=== PATIENT | female | born 1960 | race Caucasian/White ===

== ENCOUNTER 2017-01-15 11:11 | Emergency (ER) | payer OTHER ==
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
--- NOTE | 2017-01-15 16:05 | ED ORDER SUMMARY ---
..... Patient: SEBASTIAN GARCIA OrderSheet [facility] VisitID: [id number] [address] [place] [address] 56y, F Registration Date/Time: 01/15/2017 ORDER SHEET Weight: 70.7 kg (stated) Allergies: Latex, Sulfa Antibiotics GENERAL ORDERS: CBC w Diff Urgent (11:01/15/2017 Chapis Gibbs) (Ack 11:32 DMOoerubaner) (11:37 KKnebelkys R.N.) CMP Urgent (11:01/15/2017 Chapis Gibbs) (Ack 11:32 DOMoerubaner) (11:37 KATIEnebel R.N.) TSH Urgent (11:01/15/2017 Chapis Gibbs) (Ack 11:32 DOMoerner) (11:37 KKnebel R.N.) Culture, Strep Screen Urgent (11:01/15/2017 Chapis Gibbs) (Ack 11:32 DOMoerner) (11:37 KKnebel R.N.) - (discharge planning) (14:20 01/15/2017 Chapis Gibbs) (14:57 KHoerner) UA-Culture if indicated Urgent (14:43 01/15/2017 Chapis Gibbs) (14:57 KHoerner) Urine Drug Screen Urgent (15:53 01/15/2017 Chapis Gibbs) (15:59 KHoerner) MEDICATION ORDERS: Ativan PO 0.5 mg (HIGH ALERT MEDICATION, NOW) (14:19 01/15/2017 Chapis Gibbs) (14:41 Tiana R.N.) IV FLUIDS: ORDER SHEET NOTES: [Electronically signed by Darlin Anthony R.N. (19:39 01/15/2017)] [Electronically signed by Jc Gardner Dr. (13:00 01/16/2017)] [Electronically locked/signed by Darlin Anthony R.N. (19:39 01/15/2017)]
--- NOTE | 2017-01-15 16:05 | ED CLINICAL REPORT ---
Clinical Report - Physicians/Mid Levels [facility] [address] [place] [address] 01/15/2017 11:12 Patient: SEBASTIAN GARCIA Time Seen: 1120. Arrived- By private vehicle. Historian- patient. HISTORY OF PRESENT ILLNESS Chief Complaint: SORE THROAT. This started patient does not recall and is still present. It was abrupt in onset and has been constant but is not gone now. Pain described as moderate. The patient has had a sore throat. No nasal discharge or congestion. (patient is also here for other concerns including a rash in her scalp, ear pain for the past several months, bilateral knee pain, lower back pain, left-sided jaw pain, body aches, and joint pain, as well as problem with her calcium level. Patient states that she was told she had a high calcium level. Patient is somewhat difficult to direct. patient also states that her recent living situation she was in was significant for possible drug dealing. Patient states that she no longer lives there and does not have a place to live.). Similar symptoms previously: None. Recent medical care: Not recently seen/assessed. REVIEW OF SYSTEMS No fever, abdominal pain or skin rash. She has had chest pain (in contrast was reported from nursing notes.) and joint pain. All systems otherwise negative, except as recorded above. PAST HISTORY See nurses notes. Medications: Aspirin Oral. Allergies: Latex. Sulfa Antibiotics. SOCIAL HISTORY Smoker- current status unknown. Occasional alcohol use. No drug use. No recent travel. Is a local resident. ADDITIONAL NOTES The nursing notes have been reviewed. PHYSICAL EXAM Vital Signs: 01/15/2017 11:17 BP: 183/98. HR: 56. RR: 16. O2 saturation: 100%. Temp: 98.1 F. Pain level now: 4/10. Blood pressure normal. Oxygen saturation normal. Appearance: Alert. No acute distress. Head: Normal external inspection. (white flaky rash to the occipital scalp. No erythema. No bleeding. No masses.). Eyes: Pupils equal, round and reactive to light. Conjunctivae and eyelids normal. ENT: Ears normal. Nose normal. Pharynx normal. Lips normal. Gums normal. No trismus present. Uvula midline. Neck: Trachea midline. No adenopathy. Thyroid normal. No lymphadenopathy or meningeal signs. CVS: Normal heart rate and rhythm. Heart sounds normal. Pulses normal. Respiratory: No respiratory distress. Breath sounds normal. Abdomen: Soft and nontender. No organomegaly. Skin: Normal skin color. No rash. Normal skin turgor. Extremities: Extremities exhibit normal ROM. Extremities nontender. Neuro: Oriented X 3. No motor deficit. No sensory deficit. Reflexes normal. (normal gait. no suicidal ideation. No homicidal ideation. No hallucinations or delusions.). LABS, X-RAYS, AND EKG Laboratory Tests: UA-Culture if indicated: (CELY: 01/15/2017 14:44) ( [facility] 01/15/2017 14:55) Final results Test Result Flag Units (Reference) URINE COLOR YELLOW URINE APPEARANCE CLEAR URINE GLUCOSE NEGATIVE (NEGATIVE) URINE BILIRUBIN NEGATIVE (NEGATIVE) URINE KETONE TRACE (NEGATIVE) URINE SPECIFIC GRAVITY 1.010 (1.010-1.030) URINE PH 6.5 (5.0-8.0) URINE PROTEIN NEGATIVE (NEGATIVE) URINE UROBILINOGEN 0.2 EU/dL (0.2-1.0) URINE NITRITE NEGATIVE (NEGATIVE) URINE BLOOD NEGATIVE (NEGATIVE) URINE LEUK ESTERASE NEGATIVE (NEGATIVE) URINE RBC NONE SEEN rbc/hpf (0-1) URINE WBC RARE wbc/hpf (0-1) URINE EPITHELIAL CELLS 0-1 EPI/hpf (0-5) URINE BACTERIA FEW (1+) (NONE SEEN) URINE COMMENT CULT NOT INDICATED URINE CULTURES ARE SET-UP BASED ON THE FOLLOWING CRITERIA:POSITIVE NITRITEPOSITIVE LEUKOCYTE ESTERASEGREATER THAN 10 WHITE BLOOD CELLSMODERATE (2+) OR GREATER BACTERIA CBC w Diff: (CELY: 01/15/2017 12:00) ( [facility] 01/15/2017 12:10) Final results Test Result Flag Units (Reference) WHITE BLOOD COUNT 8.8 K/uL (4.5-11.5) RED BLOOD COUNT 4.75 M/uL (4.00-5.20) HEMOGLOBIN 15.1 gm/dL (12.0-16.0) HEMATOCRIT 44.4 % (36.0-46.0) MEAN CELL VOLUME 94 fL (80-100) MEAN CORPUSCULAR HGB 32 pg (26-34) MEAN CORPUSCULAR HGB CONC 34 g/dL (31-37) RED CELL DISTRIBUTION WIDTH 13.2 % (11.6-14.8) PLATELET COUNT 194 K/uL (150-400) NEUTROPHIL % 60.1 % (50-75) LYMPH % 33.4 % (25-40) MONO % 5.0 % (3-14) EOSINOPHIL % 1.2 % (0-4) BASOPHIL % 0.3 % (0-2) Urine Drug Screen: (CELY: 01/15/2017 14:44) ( [facility] [place] 01/15/2017 16:27) Final results Test Result Flag Units (Reference) AMPHETAMINE/METHAMPHETAMINE NEGATIVE (NEGATIVE) BARBITURATE NEGATIVE (NEGATIVE) BENZODIAZEPINE NEGATIVE (NEGATIVE) CANNABINOID POSITIVE H (NEGATIVE) COCAINE NEGATIVE (NEGATIVE) ECSTASY NEGATIVE (NEGATIVE) METHADONE NEGATIVE (NEGATIVE) OPIATE NEGATIVE (NEGATIVE) The urine drug screen is a qualitative screening test fordrug overdose and abuse. All screen results should beconsidered as presumptive.Drugs screened for are as follows:BenzodiazepinesCocaineAmphetamines/MetamphetaminesTHC (Tetrahydrocannabinol)OpiatesBarbituratesEcstasyMethadonePositive results are unconfirmed. For confirmation, notifythe lab for the specimen to be sent to the reference lab.All confirmations must be performed by a differentmethodology.The ingestion of natural herbal and plant productscontaining Ephedra/Ephedra metabolites can produce in urineone or more substances capable of cross reacting withamphetamine/methamphetamine immunoassays. These testsprovide a preliminary result only. A more specificalternative chemical method must be used to obtain aconfirmed analytical result. CMP: (CELY: 01/15/2017 12:00) ( [facility] [place] 01/15/2017 13:52) Final results Test Result Flag Units (Reference) GLUCOSE 88 mg/dL (70-110) BUN 12 mg/dL (7-18) CREATININE 0.6 mg/dL (0.6-1.3) Estimated GFR >60 mL/min Estimated GFR- >60 mL/min Note: Persistent reduction over 3 months in eGFR<60 mL/min/1.73 m2 defines CKD. Patients with eGFR values>=60 mL/min/1.73 m2 may also have CKD if evidence ofpersistent proteinuria. Additional information may be foundat www.kidney.org. SODIUM 143 mmol/L (136-145) POTASSIUM 4.0 mmol/L (3.5-5.1) CHLORIDE 105 mmol/L (98-107) CARBON DIOXIDE 26 mmol/L (21-32) CALCIUM 10.5 H mg/dL (8.5-10.1) TOTAL PROTEIN 8.2 g/dL (6.4-8.2) ALBUMIN 4.4 g/dL (3.3-5.0) BILIRUBIN, TOTAL 0.4 mg/dL (0.0-1.0) ALKALINE PHOSPHATASE 199 H U/L (46-116) AST (SGOT) 33 U/L (15-37) ALT (SGPT) 34 U/L (12-78) THYROID STIMULATING HORMONE 1.146 uIU/mL (0.30-3.74) Culture, Strep Screen: (CELY: 01/15/2017 11:30) ( [facility] 01/15/2017 11:53) Final results Test Result Flag Units (Reference) RAPID STREP SCREEN - THROAT DATE: 01/15/17 NEGATIVE SCREEN: RAPID STREP SCREEN NEGATIVE; CONFIRMATION TO FOLLOW . PROGRESS AND PROCEDURES Course of Care: the patient is a 56-year-old female with unknown past medical history except for possible calcium abnormality. Patient will be provided with laboratory studies as well as thyroid functioning. We'll also obtain a urinalysis for any signs of urinary tract infection. 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 Patient was to go to ENT clinic today at 11:00 over call the ambulance to go to the emergency department instead. Patient apparently has missed her other appointment that was scheduled for her for evaluation. Was able to contact the office and clarify what it happened. Patient apparently was lost to follow-up. Patient is also been abusive to the social security benefits interviewer and yelled at them over the phone when trying to help. Patient was encouraged to accept the help that was provided to her. Also had discussed with the discharge planning here to see if there is any other help and resources patient could obtained because of her current living situation. Patient's workup was noted to be unremarkable. No other acute findings noted on patient's examination. Calcium levels are only slightly elevated here today. No other abnormalities noted. Patient is nontoxic and in no acute distress. Head discussion with the patient in regards to her workup here in the emergency department including diagnosis, home care, follow-up, and return precautions. All questions have been answered. The patient expressed understanding of these instructions and was agreeable to them. Encouraged patient to follow up with her clinic appointment and obtain treatment for her likely pituitary adenoma. Disposition: Discharged. Condition: good. CLINICAL IMPRESSION Mild hypercalcemia. Acute pain(throat). INSTRUCTIONS Warnings: SEDATIVE MEDICATION: You were given sedative medication during your visit. Do not drive or operate dangerous machinery. GENERAL WARNINGS: Return or contact your physician immediately if your condition worsens or changes unexpectedly, if not improving as expected, or if other problems arise. Specifically return if pain, vomiting, bleeding, breathing difficulty or fever. Your Current Medications: CONTINUE TAKING THE FOLLOWING MEDICATIONS: Aspirin Oral. Follow-up: Return to the emergency department as needed. Follow up with an ear, nose and throat physician (an power tong operator). Reason for referral: call [phone] to schedule a follow up appointment. Summary of care provided to patient via paper. Follow up with your doctor in three days. Reason for referral: recheck today's concerns. Summary of care provided to patient via paper. Screening today revealed the patient's blood pressure to be in the normal range. The patient should follow up with a primary care provider for blood pressure management. Understanding of the discharge instructions verbalized by patient. (Electronically signed by Jc Gardner Dr. 01/16/2017 13:00)
--- NOTE | 2017-01-15 16:05 | ED NURSING NOTES ---
Clinical Report - Nurses [facility] [address] [place] [address] 01/15/2017 11:12 Patient: SEBASTIAN GARCIA TRIAGE Triage time 11:Jan 15 2017. Acuity: LEVEL 4. Chief Complaint: SORE THROAT. Alert. No acute distress. SEPSIS SCREEN: Sepsis Screen. Negative (no infection suspected/documented). PADMA COMA SCORE: Padma Coma Scale: 15- eyes open spontaneously (4); best verbal response- oriented x 4 (5); best motor response- obeys commands (6). --11:29 Darlin Anthony R.N. 11:17 01/15/17. BP: 183/98. HR: 56. RR: 16. O2 saturation: 100%. Temp: 98.1 F. Pain level now: 11/23. --11:29 Darlin Anthony R.N. Weight: 70.7 kg stated. Height/Length: 67 inches Per Patient. BMI: 24.4. --11:23 Darlin Anthony R.N. Medications Aspirin Oral. --11:19 Darlin Anthony R.N. Allergies Latex. Sulfa Antibiotics. --11:19 Darlin Anthony R.N. History Arrived by EMS. Historian: patient. Onset. (several months ago). She has had ear pain. Reports enlarged lymph nodes. ( rash on scalp). Treatment LOGISTICS PROGRAM MANAGER: None. Pre-hospital 12-lead EKG. EKG consistent with normal tracing. BP: 220 / 100. ( cp changes with inspiration, depression anxiety). PAST MEDICAL HX: Immunizations: up-to-date. The patient has had a hysterectomy. SOCIAL HX: Current every day heavy tobacco smoker (cigarette)- less than 1 pack per day. Alcohol use; consumes beer occasionally. History of drug use: marijuana. No infectious disease exposure. SELF HARM ASSESSMENT: A self harm assessment was performed. The patient answered "no" to the question "Do you have thoughts of harming or killing yourself?". FALL RISK ASSESSMENT: Fall risk assessment completed. No fall risk identified. NUTRITIONAL RISK ASSESSMENT: The nutritional risk assessment revealed no deficiencies. FUNCTIONAL ASSESSMENT: Functional assessment: no impairments noted. LEARNING NEEDS ASSESSMENT: The learning needs assessment revealed no barriers. ABUSE ASSESSMENT: Abuse assessment: (states that she feels unsafe and that she cant take care of herself). SKIN INTEGRITY ASSESSMENT: Skin integrity risk assessment completed. No skin integrity risk identified. --11:29 Darlin Anthony R.N. PROBLEMS: Paranoid disorder. Parathyroid adenoma. Occular migraine. Complex regional pain syndrome. --11:22 Darlin Anthony R.N. ADDITIONAL SURGERIES: Carpal Tunnel Surgery. Hysterectomy. Laparoscopy. Sympathectomy. Thoracic outlet. Tonsillectomy & Adenoidectomy. --11:22 Darlin Anthony R.N. Interventions ID band on patient. To room. --11:29 Darlin Anthony R.N. PHYSICAL ASSESSMENT GENERAL / NEURO / PSYCH: Alert. Appears in no acute distress. HEENT: Voice within normal limits. No dental injury noted. ( complains of throat pain). RESPIRATORY: Respirations not labored. CVS: Capillary refill less than 2 seconds. SKIN: Skin is warm and dry. --11:30 Darlin Anthony R.N. NURSING PROGRESS NOTES Patient gowned. Head of bed elevated. Patient identifiers checked. Call light placed in reach. Side rails up x 1. Bed placed in lowest position. --11:30 Darlin Anthony R.N. 11:30 01/15/17. Patient ID band checked for patient name and birthdate: patient confirmed. Throat swab obtained for rapid strep and culture; labeled in the presence of the patient and sent to lab. --11:37 Darlin Anthony R.N. 14:41 01/15/2017 Ativan (LORazepam) PO 0.5 mg given. Allergies verified, confirmed 5 rights and sedative warning given to the patient. --14:41 Antonio Pichardo R.N. ( crtt indicated that she has talked with SW from [facility] and will come down and talk with pt. Pt has appointment in January that she needs to keep and she will need transportation to [place] so she can get help with housing.). --15:07 Darlin Anthony R.N. 15:13 01/15/17. BP: 196/115. HR: 59. RR: 16. O2 saturation: 98%. --15:15 Darlin Anthony R.N. ( called Discharge planning and spoke to Jovany who states that Nena has left for the day. She). --16:28 Darlin Anthony R.N. DISPOSITION / DISCHARGE Condition at departure: unchanged. No learning barriers present. Discharge instructions provided and reviewed with the patient. Reviewed referrals (keep appt with [facility]). Patient verbalized understanding. Written instructions provided in [place]. The patient was discharged home. She left the Emergency Department ambulatory and via (walking). FALL RISK ASSESSMENT: Fall risk assessment completed. No fall risk identified. --19:37 Darlin Anthony R.N. Departure time: 1700 Jan 15 2017. --19:37 Darlin Anthony R.N. Locked/Released at 01/15/2017 19:39 by Darlin Anthony R.N.
--- NOTE | 2017-01-15 16:05 | ED ORDER SUMMARY ---
..... Patient: SEBASTIAN GARCIA OrderSheet [facility] VisitID: [id number] [address] [place] [address] 56y, F Registration Date/Time: 01/15/2017 ORDER SHEET Weight: 70.7 kg (stated) Allergies: Latex, Sulfa Antibiotics GENERAL ORDERS: CBC w Diff Urgent (11:01/15/2017 Chapis Gibbs) (Ack 11:32 DOMoerubaner) (11:37 KKnebelkys R.N.) CMP Urgent (11:01/15/2017 Chapis Gibbs) (Ack 11:32 DOMoerubaner) (11:37 KATIEnebel R.N.) TSH Urgent (11:01/15/2017 Chapis Gibbs) (Ack 11:32 DOMoerner) (11:37 KKnebel R.N.) Culture, Strep Screen Urgent (11:01/15/2017 Chapis Gibbs) (Ack 11:32 DOMoerner) (11:37 KKnebel R.N.) - (discharge planning) (14:20 01/15/2017 Chapis Gibbs) (14:57 KHoerner) UA-Culture if indicated Urgent (14:43 01/15/2017 Chapis Gibbs) (14:57 KHoerner) Urine Drug Screen Urgent (15:53 01/15/2017 Chapis Gibbs) (15:59 KHoerner) MEDICATION ORDERS: Ativan PO 0.5 mg (HIGH ALERT MEDICATION, NOW) (14:19 01/15/2017 Chapis Gibbs) (14:41 Tiana R.N.) IV FLUIDS: ORDER SHEET NOTES: [Electronically signed by Darlin Anthony R.N. (19:39 01/15/2017)] [Electronically signed by Jc Gardner Dr. (13:00 01/16/2017)] [Electronically locked/signed by Darlin Anthony R.N. (19:39 01/15/2017)]
--- NOTE | 2017-01-16 13:00 | ED MED RECONCILIATION SUMMARY ---
Patient: SEBASTIAN GARCIA A Medication Reconciliation Report [facility] VisitID: [id number] [address] [place] [address] 56y, F Registration Date/Time: 01/15/2017 Weight: 70.7 kg Height/Length: 67 in. BMI: 24.4 ALLERGIES: Latex, Sulfa Antibiotics The patient's Home Medications are listed below: CONTINUE TAKING THE FOLLOWING MEDICATIONS: Aspirin Oral The source(s) of the original Home Medication information: Not obtained. The following Medications were given to the patient in the Emergency Department: Ativan [PO] PO 0.5 mg, administered: 01/15/2017 2:41:00 PM The following Medications were prescribed to the patient: None.
--- NOTE | 2017-01-16 13:00 | ED MED RECONCILIATION SUMMARY ---
Patient: SEBASTIAN GARCIA A Medication Reconciliation Report [facility] VisitID: [id number] [address] [place] [address] 56y, F Registration Date/Time: 01/15/2017 Weight: 70.7 kg Height/Length: 67 in. BMI: 24.4 ALLERGIES: Latex, Sulfa Antibiotics The patient's Home Medications are listed below: CONTINUE TAKING THE FOLLOWING MEDICATIONS: Aspirin Oral The source(s) of the original Home Medication information: Not obtained. The following Medications were given to the patient in the Emergency Department: Ativan [PO] PO 0.5 mg, administered: 01/15/2017 2:41:00 PM The following Medications were prescribed to the patient: None.
--- NOTE | 2017-01-16 13:00 | ED DISCHARGE INSTRUCTIONS ---
Patient: SEBASTIAN GARCIA General Instructions [facility] VisitID: [id number] [address] [place] [address] 56y, F Registration Date/Time: 01/15/2017 Mild hypercalcemia. Acute pain(throat). INSTRUCTIONS Warnings: SEDATIVE MEDICATION: You were given sedative medication during your visit. Do not drive or operate dangerous machinery. GENERAL WARNINGS: Return or contact your physician immediately if your condition worsens or changes unexpectedly, if not improving as expected, or if other problems arise. Specifically return if pain, vomiting, bleeding, breathing difficulty or fever. Your Current Medications: CONTINUE TAKING THE FOLLOWING MEDICATIONS: Aspirin Oral. Follow-up: Return to the emergency department as needed. Follow up with an ear, nose and throat physician (an sock liner). Reason for referral: call [phone] to schedule a follow up appointment. Summary of care provided to patient via paper. Follow up with your doctor in three days. Reason for referral: recheck today's concerns. Summary of care provided to patient via paper. Screening today revealed the patient's blood pressure to be in the normal range. The patient should follow up with a primary care provider for blood pressure management. Understanding of the discharge instructions verbalized by patient. ADDITIONAL INFORMATION Pain, Uncertain Cause [Acute] Pain is the bodys way of calling attention to a problem. Pain can be caused by many conditions - some minor, some serious. In your case, we were not able to find the exact cause for your pain. However, at this time there is no sign of any serious or life-threatening illness causing your pain. Sometimes more tests will be needed to determine the cause. Other times, just allowing more time to pass will either make it clear what the problem is, or the pain will go away by itself. Home Care: You may use acetaminophen (Tylenol) or ibuprofen (Motrin, Advil) to control pain, unless another medicine was prescribed. [NOTE: If you have chronic liver or kidney disease or ever had a stomach ulcer or GI bleeding, talk with your doctor before using these medicines.] Follow Up with your doctor or as advised by our staff. Get Prompt Medical Attention if any of the following occur: Changes in the pattern of your pain Appearance of new symptoms Fever of 100.4F (38C) or higher, or as directed by your healthcare provider You have been given the following additional information: Pain, Uncertain Cause (Acute) (Electronically signed by Jc Gardner Dr. 01/16/2017 13:00)
--- NOTE | 2017-01-16 13:00 | ED MAR SUMMARY ---
..... Medication Administration Record Merged With [facility] [address] [place] [address] Patient: SEBASTIAN GARCIA Visit ID: [id number] 56y, F Weight: 70.7 kg Height/Length: 67 in BMI: 24.4 ALLERGIES: Sulfa Antibiotics, Latex Given 14:41 01/15/2017 Antonio Pichardo R.N. Medication Administered: ATIVAN [PO] (LORAZEPAM), Dose: 0.5 mg PO. Medication Ordered: Ativan PO 0.5 mg (HIGH ALERT MEDICATION, NOW).
--- NOTE | 2017-01-16 13:00 | ED DISCHARGE INSTRUCTIONS ---
Patient: SEBASTIAN GARCIA General Instructions [facility] VisitID: [id number] [address] [place] [address] 56y, F Registration Date/Time: 01/15/2017 Mild hypercalcemia. Acute pain(throat). INSTRUCTIONS Warnings: SEDATIVE MEDICATION: You were given sedative medication during your visit. Do not drive or operate dangerous machinery. GENERAL WARNINGS: Return or contact your physician immediately if your condition worsens or changes unexpectedly, if not improving as expected, or if other problems arise. Specifically return if pain, vomiting, bleeding, breathing difficulty or fever. Your Current Medications: CONTINUE TAKING THE FOLLOWING MEDICATIONS: Aspirin Oral. Follow-up: Return to the emergency department as needed. Follow up with an ear, nose and throat physician (an cosmetics presser). Reason for referral: call [phone] to schedule a follow up appointment. Summary of care provided to patient via paper. Follow up with your doctor in three days. Reason for referral: recheck today's concerns. Summary of care provided to patient via paper. Screening today revealed the patient's blood pressure to be in the normal range. The patient should follow up with a primary care provider for blood pressure management. Understanding of the discharge instructions verbalized by patient. ADDITIONAL INFORMATION Pain, Uncertain Cause [Acute] Pain is the bodys way of calling attention to a problem. Pain can be caused by many conditions - some minor, some serious. In your case, we were not able to find the exact cause for your pain. However, at this time there is no sign of any serious or life-threatening illness causing your pain. Sometimes more tests will be needed to determine the cause. Other times, just allowing more time to pass will either make it clear what the problem is, or the pain will go away by itself. Home Care: You may use acetaminophen (Tylenol) or ibuprofen (Motrin, Advil) to control pain, unless another medicine was prescribed. [NOTE: If you have chronic liver or kidney disease or ever had a stomach ulcer or GI bleeding, talk with your doctor before using these medicines.] Follow Up with your doctor or as advised by our staff. Get Prompt Medical Attention if any of the following occur: Changes in the pattern of your pain Appearance of new symptoms Fever of 100.4F (38C) or higher, or as directed by your healthcare provider You have been given the following additional information: Pain, Uncertain Cause (Acute) (Electronically signed by Jc Gardner Dr. 01/16/2017 13:00)
--- NOTE | 2017-01-16 13:00 | ED MAR SUMMARY ---
..... Medication Administration Record [facility] [address] [place] [address] Patient: SEBASTIAN GARCIA Visit ID: [id number] 56y, F Weight: 70.7 kg Height/Length: 67 in BMI: 24.4 ALLERGIES: Sulfa Antibiotics, Latex Given 14:41 01/15/2017 Antonio Pichardo R.N. Medication Administered: ATIVAN [PO] (LORAZEPAM), Dose: 0.5 mg PO. Medication Ordered: Ativan PO 0.5 mg (HIGH ALERT MEDICATION, NOW).
== END 2017-01-15 16:55 | disposition home or self-care (01) ==
LOC: ED SRH 11:11
DX: J02.9 Acute pharyngitis, unspecified (principal); E83.52 Hypercalcemia; R21 Rash and other nonspecific skin eruption; Z79.82 Long term (current) use of aspirin; Z88.2 Allergy status to sulfonamides; Z91.040 Latex allergy status
CPT/HCPCS: 90004; 90100; 90154; 90159; 92760; 92761; 92762; 92763; 92764; 92765; 92766; 92767; 93140; 95059